=== PATIENT | female | born 2000 | race Caucasian/White ===

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

== ENCOUNTER 2018-01-15 11:30 | Emergency (ER) | payer OTHER ==
--- NOTE | 2018-01-15 11:34 | UC ---
Lower Extremity/Ankle HPI - HPI Summary HPI Summary: 17 yo female presents with right great toe pain. She tells me that she has an ingrown toenail here and was trying to remove it. Over the course of the last 2 weeks the area has become red, swollen, and painful. She tried to drain the area and peeled off a scab yesterday. Today pain is worse and area seems more red. Denies fever or chills. - History of Current Complaint Stated Complaint: R TOE COMPLAINT Time Seen by Provider: 01/15/18 11:34 Hx Obtained From: Patient Hx Last Menstrual Period: 08/26/16 Onset/Duration: Gradual Onset Severity Initially: Moderate Severity Currently: Severe Pain Intensity: 10 Pain Scale Used: 0-10 Numeric Aggravating Factor(s): Standing, Ambulation Able to Bear Weight: Yes - Allergies/Home Medications Allergies/Adverse Reactions: Allergies Allergy/AdvReac Type Severity Reaction Status Date / Time cat dander Allergy Congestion Verified 01/15/18 11:41 birds Allergy Congestion Uncoded 01/15/18 11:41 PMH/Surg Hx/FS Hx/Imm Hx - Additional Past Medical History Additional PMH: None - Surgical History Surgical History: Yes Surgery Procedure, Year, and Place: ta wisdom teeth - Family History Known Family History: Positive: None Family History: no medical issues reported in family lineage - Social History Occupation: Student Lives: With Family Alcohol Use: None Substance Use Type: None Smoking Status (MU): Never Smoked Tobacco Review of Systems All Other Systems Reviewed And Are Negative: Yes Constitutional: Positive: Negative Skin: Positive: Other - paronychia right great toe Respiratory: Positive: Negative Cardiovascular: Positive: Negative Neurovascular: Positive: Negative Musculoskeletal: Positive: Negative Neurological: Positive: Negative Psychological: Positive: Negative Physical Exam - Summary Physical Exam Summary: GENERAL: NAD. WDWN. No pain distress. SKIN: RIGHT great toe: lateral aspect nail-skin fold with moderate edema and erythema. TTP. Mild drainage expressed with pressure and dried blood present. NECK: Supple. Nontender. No lymphadenopathy. CHEST: No accessory muscle use. Breathing comfortably and in no distress. CV: Pulses intact. Cap refill <2seconds NEURO: Alert. PSYCH: Age appropriate behavior. Triage Information Reviewed: Yes Vital Signs: Vital Signs: Temp Pulse Resp BP Pulse Ox 98.3 F 99 18 139/97 96 01/15/18 11:34 12/06/18 11:34 01/15/18 11:34 01/15/18 11:34 01/15/18 11:34 Vital Signs Reviewed: Yes Lower Extremity Course/Dx - Course Course Of Treatment: Paronychia right great toe. Rx for keflex. Advised to soak the toe in warm salt water and/or epsom salt. - Differential Dx/Diagnosis Provider Diagnosis: Paronychia of great toe, right Discharge - Sign-Out/Discharge Documenting (check all that apply): Patient Departure All imaging exams completed and their final reports reviewed: No Studies - Discharge Plan Condition: Stable Disposition: HOME Prescriptions: Cephalexin CAP* [Keflex CAP*] 500 mg PO TID #21 cap Patient Education Materials: Paronychia (ED) Referrals: No Primary Care Phys,NOPCP [Primary Care Provider] - Additional Instructions: If you develop a fever, shortness of breath, chest pain, new or worsening symptoms - please call your PCP or go to the ED. Your blood pressure was high at todays visit. Please see your primary provider within 4 weeks for recheck and re-evaluation. 1) Soak your toe in warm salt water or epsom salt and keep the area clean and covered with a band-aid. - Billing Disposition and Condition Condition: STABLE Disposition: Home
[2018-01-15 11:40] VITALS: BP 139/97
== END 2018-01-15 11:57 | disposition home or self-care (01) ==
LOC: UCEAST 11:30
DX: L03.031 Cellulitis of right toe (principal)
CPT/HCPCS: 99212; G0463

== ENCOUNTER 2018-02-02 11:30 | Emergency (ER) | payer OTHER ==
[2018-02-02 11:40] VITALS: BP 150/90
--- NOTE | 2018-02-02 12:06 | UC ---
Dental HPI - HPI Summary HPI Summary: 17 yo female presents with dental pain. She tells me that 2 weeks ago she had a deep cavity filled. About 3-4 days ago developed pain in this area and today has swelling to her jaw/cheek. She is able to eat and drink, but has significant pain. Has been taking tylenol and ibuprofen with no relief. Has also tried lidocaine and oragel with mild relief. Denies fever, chills. - History of Current Complaint Chief Complaint: UCDentalProblem Stated Complaint: DENTAL Time Seen by Provider: 02/02/18 12:06 Hx Obtained From: Patient Hx Last Menstrual Period: 01/12/18 Onset/Duration: Gradual Onset Severity: Severe Pain Intensity: 10 Pain Scale Used: 0-10 Numeric - Allergies/Home Medications Allergies/Adverse Reactions: Allergies Allergy/AdvReac Type Severity Reaction Status Date / Time cat dander Allergy Congestion Verified 02/02/18 11:40 birds Allergy Congestion Uncoded 02/02/18 11:40 Home Medications: Home Medications Mesalamine [Apriso] 1 tab PO DAILY 02/02/18 [History Confirmed 02/02/18] PMH/Surg Hx/FS Hx/Imm Hx - Additional Past Medical History Additional PMH: UC - Surgical History Surgical History: Yes Surgery Procedure, Year, and Place: ta wisdom teeth - Family History Known Family History: Positive: None Family History: no medical issues reported in family lineage - Social History Occupation: Employed Full-time Lives: With Family Alcohol Use: None Substance Use Type: None Smoking Status (MU): Never Smoked Tobacco Household Exposure Type: Cigarettes Review of Systems All Other Systems Reviewed And Are Negative: Yes Constitutional: Positive: Negative Skin: Positive: Negative Eyes: Positive: Negative ENT: Positive: Dental Pain Respiratory: Positive: Negative Neurovascular: Positive: Negative Neurological: Positive: Negative Psychological: Positive: Negative Physical Exam - Summary Physical Exam Summary: GENERAL: NAD. WDWN. No pain distress. SKIN: No rashes, sores, lesions, or open wounds. HEENT: Head: AT/NC. Nose: Nasal mucosa pink and moist. NTTP maxillary and frontal sinus. Throat: Posterior oropharynx without exudates, erythema, or tonsillar enlargement. Uvula midline. NECK: Supple. Nontender. No lymphadenopathy. CHEST: No accessory muscle use. Breathing comfortably and in no distress. CV: Pulses intact. Cap refill <2seconds NEURO: Alert. PSYCH: Age appropriate behavior. Triage Information Reviewed: Yes Vital Signs: Initial Vital Signs Temp 98 F 02/02/18 11:37 Pulse 88 02/02/18 11:37 Resp 17 02/02/18 11:37 BP 150/90 02/02/18 11:37 Pulse Ox 99 02/02/18 11:37 Vital Signs Reviewed: Yes Dental: Positive: Percussion Tenderness @ - Tooth 29, Abscess @ - Tooth 29, Other: - edema at Tooth 29. Negative: Gross Decay/Caries @, Dental Fracture @, Cellulitis @, Cervical Lymphadenopathy Dental Complaint Course/Dx - Course Course Of Treatment: Tooth 29 abscess. Given failure of tylenol, ibuprofen, lidocaine viscous, and oragel will rx for short course of norco. Rx for anbx and advised to f/u with dentist as soon as possible - Differential Dx/Diagnosis Provider Diagnosis: Tooth abscess Discharge - Sign-Out/Discharge Documenting (check all that apply): Patient Departure All imaging exams completed and their final reports reviewed: No Studies - Discharge Plan Condition: Stable Disposition: HOME Prescriptions: Amoxicillin PO (*) [Amoxicillin 500 MG CAP*] 500 mg PO Q12H #14 cap Hydrocodone/Acetaminophen [Anmoore 5-325 Tablet] 1 each PO BID PRN #6 tablet MDD 2 PRN Reason: Pain Patient Education Materials: Dental Abscess (ED) Referrals: No Primary Care Phys,NOPCP [Primary Care Provider] - Additional Instructions: If you develop a fever, shortness of breath, chest pain, new or worsening symptoms - please call your PCP or go to the ED. Your blood pressure was high at todays visit. Please see your primary provider within 4 weeks for recheck and re-evaluation. Please follow up with your dentist as soon as possible - Billing Disposition and Condition Condition: STABLE Disposition: Home
[2018-02-02] MEDS ORDERED: HYDROcodone/ACETAMIN 5-325 MG* 1 TAB PO ONE (12:16)
== END 2018-02-02 12:27 | disposition home or self-care (01) ==
LOC: UCEAST 11:30
DX: K04.7 Periapical abscess without sinus (principal); Z91.048 Other nonmedicinal substance allergy status
CPT/HCPCS: 99212; G0463

== ENCOUNTER 2018-04-29 08:02 | Emergency (ER) | payer OTHER ==
[2018-04-29 08:30] VITALS: BP 144/80
--- NOTE | 2018-04-29 09:59 | ED ---
Skin Complaint - HPI Summary HPI Summary: 17 yo WF with right great toe infection, was on a round of Keflex on 01/15/18 and put neopsporin on it but now presents with brownish skin growths oneach side of her tonail with some redness - History of Current Complaint Chief Complaint: UCLowerExtremity Time Seen by Provider: 04/29/18 08:13 Stated Complaint: FOOT PAIN Hx Obtained From: Patient, Family/Turn Out Worker Hx Last Menstrual Period: 04/20/18 Onset/Duration: Started Weeks Ago Skin Exposure Onset/Duration: Weeks Ago Timing: Lasting Weeks Onset Severity: Moderate Current Severity: Moderate Pain Intensity: 0 - Allergy/Home Medications Allergies/Adverse Reactions: Allergies Allergy/AdvReac Type Severity Reaction Status Date / Time cat dander Allergy Congestion Verified 04/29/18 08:10 birds Allergy Congestion Uncoded 04/29/18 08:10 PMH/Surg Hx/FS Hx/Imm Hx - Surgical History Surgery Procedure, Year, and Place: ta wisdom teeth Infectious Disease History: No Infectious Disease History: Denies: Hx Clostridium Difficile, Hx Hepatitis, Hx Human Immunodeficiency Virus (HIV), Hx of Known/Suspected MRSA, Hx Shingles, Hx Tuberculosis, Hx Known/ Suspected VRE, Hx Known/Suspected VRSA, History Other Infectious Disease, Traveled Outside the [place] in Last 30 Days - Family History Known Family History: Positive: None Family History: no medical issues reported in family lineage - Social History Alcohol Use: None Substance Use Type: Reports: None Smoking Status (MU): Never Smoked Tobacco Review of Systems - ROS Summary Review of Systems Summary: Constitutional: Negative Skin: SEE HPI Eyes: Negative ENT: Negative Cardiovascular: Negative Respiratory: Negative Gastrointestinal: Negative Genitourinary: Negative Musculoskeletal: Negative Neurological: Negative Psychological: Normal All Other Systems Reviewed And Are Negative: Yes All Other Systems Reviewed And Are Negative: Yes Physical Exam - Summary Physical Exam Summary: Triage Information Reviewed: Yes Appearance: No Pain Distress Eye Exam: Normal ENT Exam: Normal ENT: Positive: Normal ENT inspection Neck: Positive: Supple Respiratory: Positive: Lungs clear, Normal breath sounds Cardiovascular: Positive: RRR, S1, S2 Abdominal Exam: Normal Musculoskeletal Exam: Normal Neurological Exam: Normal Psychological Exam: Normal Skin Exam: small cutaneous warts on either side of her R great toenail, size 0.5cm and 0.4cm respectively Vital Signs On Initial Exam: Initial Vitals Temp Pulse Resp BP Pulse Ox 36.6 C 88 18 144/80 99 04/29/18 08:08 04/29/18 08:08 04/29/18 08:08 04/29/18 08:08 04/29/18 08:08 Diagnostics - Vital Signs Vital Signs Temp Pulse Resp BP Pulse Ox 04/29/18 08:08 36.6 C 88 18 144/80 99 - Laboratory Lab Statement: Any lab studies that have been ordered have been reviewed, and results considered in the medical decision making process. Course/Dx - Course Assessment/Plan: right great toe paronychia with cutaneous wart- soaked, cleaned and topically removed warts but roots are deep, may need surgical excision and further tx by Derm - Differential Diagnoses - Skin Complaint Differential Diagnoses: Abscess - Diagnoses Provider Diagnoses: Warts of foot, Paronychia Discharge - Sign-Out/Discharge Documenting (check all that apply): Patient Departure All imaging exams completed and their final reports reviewed: Yes - Discharge Plan Condition: Stable Disposition: HOME Prescriptions: Imiquimod [Zyclara] 7.5 gm TP BEDTIME 28 Days #1 gabriel..account resolution analyst Sulfamethox/Trimethoprim DS* [Bactrim DS 800/160 TAB*] 1 tab PO BID 10 Days #20 tab Patient Education Materials: Common Wart (ED) Referrals: Polly Woodson MD [Medical Doctor] - Additional Instructions: aplly the cream as directed and follow up with mail agent LORENA - Billing Disposition and Condition Condition: STABLE Disposition: Home
== END 2018-04-29 10:05 | disposition home or self-care (01) ==
LOC: UCEAST 08:02
DX: B07.9 Viral wart, unspecified (principal); L03.031 Cellulitis of right toe; Z91.09 Other allergy status, other than to drugs and biological substances
CPT/HCPCS: 11000; 99212; G0463

== ENCOUNTER 2018-07-27 07:02 | Emergency (ER) | payer OTHER ==
--- NOTE | 2018-07-27 07:18 | UC ---
UC General HPI - HPI Summary HPI Summary: 17 yo female presents with mom, c/o cough persistant x several days. Not getting better. ? fever no chills. No rash. No GI / issues. Also + dental pain, last few days. Recently had restorationist. Plans to see dentist in the next week or two. + sinus and nasal congestion. - History of Current Complaint Stated Complaint: COUGH/VOMITTING DENTAL Time Seen by Provider: 07/27/18 07:12 Hx Obtained From: Patient, Family/Balance Assembler Hx Last Menstrual Period: 04/20/18 - Allergy/Home Medications Allergies/Adverse Reactions: Allergies Allergy/AdvReac Type Severity Reaction Status Date / Time cat dander Allergy Congestion Verified 07/27/18 07:18 birds Allergy Congestion Uncoded 07/27/18 07:18 Home Medications: Home Medications Ascorbic Acid [Vitamin C] 1 tab PO DAILY 07/27/18 [History Confirmed 07/27/18] Cholecalciferol (Vitamin D3) [Vitamin D3] 1 tab PO DAILY 07/27/18 [History Confirmed 07/27/18] Escitalopram * [Lexapro 5 mg (NF)] 1 tab PO DAILY 07/27/18 [History Confirmed ] Guaifenesin/Dextromethorphan [Cough Dm Syrup] 1 dose PO ONCE PRN 07/27/18 [ History Confirmed 07/27/18] PMH/Surg Hx/FS Hx/Imm Hx Previously Healthy: Yes - Surgical History Surgical History: Yes Surgery Procedure, Year, and Place: ta wisdom teeth - Family History Known Family History: Positive: None Family History: no medical issues reported in family lineage - Social History Alcohol Use: None Substance Use Type: None Smoking Status (MU): Never Smoked Tobacco Household Exposure Type: Cigarettes Review of Systems All Other Systems Reviewed And Are Negative: Yes Constitutional: Positive: Other - see hpi Skin: Positive: Other - see hpi Eyes: Positive: Other - see hpi ENT: Positive: Other Respiratory: Positive: Other - see hpi Cardiovascular: Positive: Other - see hpi Gastrointestinal: Positive: Other - see hpi Genitourinary: Positive: Other - see hpi Motor: Positive: Other - see hpi Neurovascular: Positive: Other - see hpi Musculoskeletal: Positive: Other: - see hpi Neurological: Positive: Other Psychological: Positive: Negative Is Patient Immunocompromised?: No Physical Exam Triage Information Reviewed: Yes Appearance: Well-Nourished, Other: - looks tired, but nad. Nontoxic general. Vital Signs Reviewed: Yes Eye Exam: Normal ENT: Positive: Other - R tm dull, + cerumen but not impacted L tm not visualizable d/t cerumen impaction post pharynx mild redness, uvula midine. No sores / exudates appreciated Dental Exam: Other - L lower 2nd premolar + tender, + gum swelling, and slight fluctuance. No marcela's. Neck supple Neck exam: Normal Respiratory Exam: Other - BS equal. mild bilat exp wheeze with rhonchorus cough. Respiratory: Positive: No respiratory distress, No accessory muscle use Cardiovascular Exam: Normal Cardiovascular: Positive: RRR, No Murmur, Pulses Normal, Brisk Capillary Refill Abdominal Exam: Normal Abdomen Description: Positive: Nontender Musculoskeletal Exam: Normal - gait steady, moves x 4 ext's Neurological Exam: Normal - grossly nonfocal Psychological Exam: Normal - conversing easily and appropriately. Course/Dx - Course Course Of Treatment: - d/w pt, need for recheck. Cerumen impaction - pt would prefer to irrigate her ears on her own. Will f/u with [facility]. Slight wheeze / tight cough. D/w pt and mom, including need for f/u resp check. Likely viral. Re dental abscess - will start augmentin, encourage f/u as planned with dentist. Reviewed coa / tx plan with pt and mom. [Questions as posed answered to the best of my ability. w - Diagnoses Provider Diagnosis: Cerumen impaction, Bronchitis with bronchospasm, High blood pressure, Dental abscess Discharge - Sign-Out/Discharge Documenting (check all that apply): Patient Departure All imaging exams completed and their final reports reviewed: No Studies - Discharge Plan Condition: Stable Disposition: HOME Prescriptions: Albuterol HFA INHALER* [Ventolin HFA Inhaler*] 1 - 2 puff INH Q4H PRN #1 mdi PRN Reason: Wheezing Amoxicillin/Clavulanate TAB* [Augmentin TAB 875*] 875 mg PO BID #20 tab Benzonatate CAP* [Tessalon 100 MG CAP*] 100 mg PO TID PRN #30 cap PRN Reason: Cough Patient Education Materials: Dental Abscess (ED), Cerumen Impaction (ED), Acute Bronchitis (ED), Hypertension (ED), Bronchospasm (ED), Toothache (ED) Forms: *Work Release Referrals: Jeff Henderson ROLLER HAND [Primary Care Provider] - Additional Instructions: Follow up with [facility] for recheck next week. Seek medical attention for worse or new problems in the meantime. Hydrate. Your ear canals are plugged with wax. Try to use othe over the counter ear flush. Have [facility] check to see if clearer. Avoid q-tips. Avoid "Decongestant" in your cold medications. Your blood pressure was elevated today, and decongestants can worsen it. Follow up with your dentist as scheduled. - Billing Disposition and Condition Condition: STABLE Disposition: Home
[2018-07-27 07:19] VITALS: BP 156/99
== END 2018-07-27 07:48 | disposition home or self-care (01) ==
LOC: UCEAST 07:02
DX: J20.9 Acute bronchitis, unspecified (principal); H61.23 Impacted cerumen, bilateral; I10 Essential (primary) hypertension; K04.7 Periapical abscess without sinus
CPT/HCPCS: 99212; G0463

== ENCOUNTER 2018-08-30 11:20 | Emergency (ER) | payer OTHER ==
[2018-08-30 11:31] VITALS: BP 134/82
--- NOTE | 2018-08-30 11:49 | UC ---
Respiratory Complaint HPI - HPI Summary HPI Summary: started having cough 2 weeks ago, was using cough medicine with little relief. cough makes throat sore. yesterday started with sinus congestion and coughed so hard at work she vomited white frothy spit. denies SOB/CP - History of Current Complaint Chief Complaint: UCRespiratory Stated Complaint: COUGH/SORETHROAT Time Seen by Provider: 08/30/18 11:38 Hx Obtained From: Patient, Family/Learning Program Manager Hx Last Menstrual Period: 04/20/18 ?: No - last sexual activity 11/2017 Onset/Duration: Gradual Onset Timing: Constant Severity Initially: Mild Severity Currently: Mild Pain Intensity: 3 Character: Cough: Nonproductive Aggravating Factors: Deep Breaths, Recumbent Position Alleviating Factors: Nothing Associated Signs And Symptoms: Positive: Nasal Congestion, Sinus Discomfort. Negative: Fever, Chills, Wheezing, Hemoptysis - Allergies/Home Medications Allergies/Adverse Reactions: Allergies Allergy/AdvReac Type Severity Reaction Status Date / Time cat dander Allergy Congestion Verified 08/30/18 11:31 Penicillins Allergy Vomiting Verified 08/30/18 11:31 birds Allergy Congestion Uncoded 08/30/18 11:31 PMH/Surg Hx/FS Hx/Imm Hx Previously Healthy: Yes Psychological History: Depression - Surgical History Surgical History: Yes Surgery Procedure, Year, and Place: ta wisdom teeth - Family History Known Family History: Positive: None Family History: no medical issues reported in family lineage - Social History Occupation: Employed Full-time Lives: With Family Alcohol Use: None Substance Use Type: Marijuana Smoking Status (MU): Never Smoked Tobacco Household Exposure Type: Cigarettes Review of Systems All Other Systems Reviewed And Are Negative: Yes Constitutional: Positive: Negative Skin: Positive: Negative ENT: Positive: Sore Throat, Sinus Congestion Respiratory: Positive: Cough. Negative: Shortness Of Breath Cardiovascular: Positive: Negative. Negative: Chest Pain Gastrointestinal: Positive: Negative. Negative: Abdominal Pain Neurological: Positive: Negative. Negative: Headache Psychological: Positive: Negative Is Patient Immunocompromised?: No Physical Exam Triage Information Reviewed: Yes Appearance: Well-Appearing, No Pain Distress, Obese Vital Signs: Initial Vital Signs Temp 98 F 08/30/18 11:28 Pulse 89 08/30/18 11:28 Resp 17 08/30/18 11:28 BP 134/82 08/30/18 11:28 Pulse Ox 99 08/30/18 11:28 Vital Signs Reviewed: Yes Eye Exam: Normal Eyes: Positive: Conjunctiva Clear ENT: Positive: Pharynx normal - clear post nasal drip, Nasal congestion, TMs normal Neck exam: Normal Neck: Positive: No Lymphadenopathy Respiratory: Positive: Lungs clear, No respiratory distress, Other: - occassional dry harsh cough heard on exam Cardiovascular Exam: Normal Cardiovascular: Positive: RRR Musculoskeletal Exam: Normal Neurological Exam: Normal Psychological Exam: Normal Skin Exam: Normal Respiratory Course/Dx - Differential Dx/Diagnosis Differential Diagnosis/HQI/PQRI: Asthma, Bronchitis, Lower Resp Infection, Sinusitis Provider Diagnosis: Bronchitis Discharge - Sign-Out/Discharge Documenting (check all that apply): Patient Departure All imaging exams completed and their final reports reviewed: No Studies - Discharge Plan Condition: Good Disposition: HOME Prescriptions: Azithromycin TAB* [Zithromax TAB (Z-NISHANT) 250 mg #6 tabs] 2 tab PO .TODAY, THEN 1 DAILY #1 nishant Patient Education Materials: Acute Bronchitis (ED) Referrals: Jeff Henderson, PHOTOGRAPH PRINTER [Primary Care Provider] - 3 Days (if not improving) Additional Instructions: drink plenty of fluids start antibiotic and take as directed suggest over the counter Day Quil/NyQuil for symptom control - Billing Disposition and Condition Condition: GOOD Disposition: Home
== END 2018-08-30 11:57 | disposition home or self-care (01) ==
LOC: UCEAST 11:20
DX: J40 Bronchitis, not specified as acute or chronic (principal); F32.9 Major depressive disorder, single episode, unspecified; Z88.0 Allergy status to penicillin
CPT/HCPCS: 99212; G0463

== ENCOUNTER 2021-11-01 14:36 | Inpatient (IN) ==
[2021-11-01] MEDS ORDERED: Calcium Gluconate 1 GM/10 ML VIAL (in Pyxis) IV PUSH PRN (14:42)
[2021-11-01] MEDS ORDERED: Buffered Lidocaine 1% SYRIN 1 ml INTRADERM ONE (14:42)
[2021-11-01] MEDS ORDERED: Lactated Ringers 1000 ml BAG 1,000 ML IV ONE (14:42)
[2021-11-01] MEDS ORDERED: Magnesium Sulfate OB PREMIX 4 GM/100 ML BAG IV ONE (14:42)
[2021-11-01] MEDS ORDERED: Magnesium Sulfate OB PREMIX 40 GM/1,000 ML BAG IVPB SCH (15:00)
[2021-11-01] MEDS ORDERED: Lactated Ringers 1000 ml BAG 1,000 ML IV SCH ×2 (15:00→18:00)
[2021-11-01] MEDS ORDERED: Sodium Citrate/Citric Acid LIQ 15 ML UDC PO ONE (15:34)
[2021-11-01] MEDS ORDERED: ceFOXitin 2 GM IVPREMIX 2 GM/50 ML BAG IVPB ONE (15:34)
[2021-11-01 15:47] LABS: Urine Appearance Cloudy; Urine Bilirubin Negative (Negative); Urine Blood Negative (Negative); Urine Color Yellow; Urine Glucose Negative (Negative); Urine Ketones Negative (Negative); Urine Nitrite Negative (Negative); Urine Protein Negative (Negative); Urine Specific Gravity 1.016 (1.002-1.030); Urine Urobilinogen Negative (Negative)
[2021-11-01 15:54] LABS: Urine Bacteria 2+ (Absent); Urine Red Blood Cell Trace(0-2/hpf) (Absent); Urine Squamous Epithelial Cell Present (Absent); Urine White Blood Cell 1+(6-10/hpf) (Absent)
[2021-11-01 15:59] LABS: ABS Basophils 0.1 10^3/ul (0-0.2); ABS Eosinophils 0.2 10^3/ul (0-0.6); ABS Lymphocytes 2.5 10^3/ul (1.0-4.8); ABS Monocytes 1.3 10^3/ul (0-0.8); ABS Neutrophils 11.7 10^3/ul (1.5-7.7); Eosinophil % 1.4 %; Hematocrit 33 % (35-47); Hemoglobin 10.4 g/dL (12.0-16.0); Lymphocyte % 15.8 %; Mean Corpuscular HGB Conc 32 g/dL (31-36); Mean Corpuscular Hemoglobin 27 pg (27-31); Mean Corpuscular Volume 85 fL (80-97); Mean Platelet Volume 9.9 fL (7.4-10.4); Nucleated Red Blood Cells % 0.1; Platelet Count 292 10^3/uL (150-450); Red Blood Count 3.85 10^6 /uL (3.70-4.87); Red Cell Distribution Width 14 % (10-15); White Blood Count 15.7 10^3/uL (3.5-10.8)
[2021-11-01 16:06] LABS: Urine Benzodiazepine Screen None Detected (None Detect); Urine Cannabinoids Screen Presumptive Positive (None Detect); Urine Opiates Screen None Detected (None Detect)
[2021-11-01] MEDS ORDERED: Ondansetron 4 mg VIAL 2 MG/ML 2 ml VIAL ONE (16:10)
[2021-11-01] MEDS ORDERED: Oxytocin 10 UNITS/ML 1 ML VIAL ONE ×5 (16:10→17:27)
[2021-11-01] MEDS ORDERED: Dexamethasone IV 4 MG/ML VIAL 1 ml VIAL ONE (16:10)
[2021-11-01] MEDS ORDERED: Morphine PF AMP (0.5MG/ML) 5 MG/10 ML AMP ONE (16:10)
[2021-11-01 16:35] LABS: Albumin 3.2 g/dL (3.2-5.2); Albumin/Globulin Ratio 1.2 (1-3); Calcium 8.7 mg/dL (8.6-10.3); Globulin 2.7 g/dL (2-4); Potassium 3.8 mmol/L (3.5-5.0); Total Bilirubin 0.3 mg/dL (0.2-1.0); Total Protein 5.9 g/dL (6.4-8.9); eGFR CKD-EPI 145.2 (>60)
[2021-11-01] MEDS ORDERED: fentaNYL 100 mcg/2 ml 50 MCG/ML VIAL ONE (16:40)
[2021-11-01] MEDS ORDERED: Acetaminophen IV 1 GM/100ML 1,000 MG/100 ML BAG IV ONE (17:12)
[2021-11-01] MEDS ORDERED: Ondansetron 4 mg VIAL 2 MG/ML 2 ml VIAL IV PRN (17:25)
[2021-11-01] MEDS ORDERED: Metoclopramide 5 MG/ML VIAL (10 mg) IV PRN (17:25)
[2021-11-01] MEDS ORDERED: Acetaminophen IV 1 GM/100ML 1,000 MG/100 ML BAG IV PRN (17:25)
[2021-11-01] MEDS ORDERED: Naloxone 0.4 mg VIAL 0.4 mg/ml 1 ml VIAL IV PUSH PRN (17:25)
[2021-11-01] MEDS ORDERED: Dibucaine 1% OINT 28.35 GM TUBE PR PRN (17:43)
[2021-11-01] MEDS ORDERED: Witch Hazel PAD JAR TOPICAL PRN (17:43)
[2021-11-01] MEDS ORDERED: Glycerin ADULT 2.4 gm SUPP PR PRN (17:43)
[2021-11-01] MEDS ORDERED: Oxytocin in LR 20,000 MILLI.UNIT/1,000 ML BAG IV SCH (17:45)
[2021-11-01] MEDS ORDERED: Phenylephrine IV 10 MG/ML 1 ml VIAL ONE (18:03)
[2021-11-01] MEDS ORDERED: Phenylephrine 40 mcg/mL 10mL (400mcg) SYRINGE ONE (18:03)
[2021-11-02 06:54] LABS: ABS Basophils 0.1 10^3/ul (0-0.2); ABS Lymphocytes 2.1 10^3/ul (1.0-4.8); ABS Monocytes 1.4 10^3/ul (0-0.8); ABS Neutrophils 16.9 10^3/ul (1.5-7.7); Hematocrit 32 % (35-47); Hemoglobin 10.7 g/dL (12.0-16.0); Lymphocyte % 10.3 %; Mean Corpuscular HGB Conc 33 g/dL (31-36); Mean Corpuscular Hemoglobin 28 pg (27-31); Mean Corpuscular Volume 85 fL (80-97); Mean Platelet Volume 9.5 fL (7.4-10.4); Nucleated Red Blood Cells % 0.1; Platelet Count 293 10^3/uL (150-450); Red Cell Distribution Width 14 % (10-15); White Blood Count 20.5 10^3/uL (3.5-10.8)
[2021-11-02] MEDS ORDERED: Measles, Mumps,Rubella VACC 0.5 ML/VIAL SUBCUT ONE (18:00)
[2021-11-02 20:42] VITALS: BP 130/72
== END 2021-11-02 22:56 | disposition left against medical advice (07) | DRG 540 ==
LOC: MCHOBOUT 14:36 → MCHOB 15:33
PROVIDERS: ADMIT Obstetrics & Gynecology; ATTEND Obstetrics & Gynecology